=== PATIENT | male | born 1970 | race Caucasian/White ===

== ENCOUNTER 2017-01-25 14:36 | Emergency (ER) | payer MEDICAID ==
[~2017-01-25] VITALS: Ht 182.9 cm; Wt 93.0 kg
[2017-01-25] MEDS ORDERED: CRESTOR5 M1 PO (14:46)
[2017-01-25] MEDS ORDERED: CRESTOR5 MG PO (15:03)
[2017-01-25 15:23] VITALS: BP 119/64
== END 2017-01-25 15:23 | disposition home or self-care (01) | DRG 607 ==
LOC: ED 14:36
DX: L98.8 Other specified disorders of the skin and subcutaneous tissue (principal); I83.891 Varicose veins of right lower extremity with other complications; M79.661 Pain in right lower leg; R22.41 Localized swelling, mass and lump, right lower limb

== ENCOUNTER 2017-04-05 09:44 | Emergency (ER) | payer OTHER ==
[~2017-04-05] VITALS: Ht 182.9 cm; Wt 90.9 kg
[~2017-04-05 09:44] MED LIST: CRESTOR5 M1 PO; CRESTOR5 MG PO
[2017-04-05] MEDS ORDERED: SILVADENE1 % EX (10:01)
[2017-04-05] MEDS ORDERED: PERCOCET 5/325M1 TAB PO (10:01)
[2017-04-05 11:19] VITALS: BP 118/64
== END 2017-04-05 11:36 | disposition home or self-care (01) | DRG 935 ==
LOC: ED 09:44
PROC: 2W2DX4Z Dressing of Left Lower Arm using Bandage (ICD-10-PCS; principal; 2017-04-05)
PROC: 2W2EX4Z Dressing of Right Hand using Bandage (ICD-10-PCS; 2017-04-05)
PROC: 2W2CX4Z Dressing of Right Lower Arm using Bandage (ICD-10-PCS; 2017-04-05)
DX: T20.23XA Burn of second degree of chin, initial encounter (principal); T31.0 Burns involving less than 10% of body surface; T22.212A Burn of second degree of left forearm, initial encounter; T22.211A Burn of second degree of right forearm, initial encounter; T23.291A Burn of second degree of multiple sites of right wrist and hand, initial encounter; T20.16XA Burn of first degree of forehead and cheek, initial encounter; X03.0XXA Exposure to flames in controlled fire, not in building or structure, initial encounter